=== PATIENT | female | born 1935 | race Caucasian/White ===

== ENCOUNTER 2016-09-09 14:34 | Emergency (ER) | payer OTHER ==
[~2016-09-09] VITALS: Ht 162.6 cm; Wt 64.5 kg
[~2016-09-09 14:34] MED LIST: ACID REDUCER150 MG PO; ADVAIR 250/501 DISK IH; ALBUTEROL17 G1 IH; ALPRAZOLAM0.25 M2 PO; AMBIEN10 M1 PO; AMBIEN10 MG PO; AMITIZA24 MICROGR PO; AMMONIUM LACTA224 GM TP; ANALGESIC325 M1 PO; ANAPROX DS550 M1 PO; ARICEPT10 MG PO; ARICEPT5 MG PO; ARTANE2 MG PO; ASPIRIN325 M1 PO; ATARAX,VISTARIL25 M1 PO; ATARAX,VISTARIL25 MG PO; Aricept PO; Artane PO; Augmentin PO; BACTRIM,SEPT1 TABLET PO; BENTYL20 MG PO; BUDEPRION SR150 MG PO; BUSPAR PO; BUSPAR15 MG PO; BUSPAR30 MG PO; BUSPAR5 MG PO; BUSPIRONE HCL30 MG PO; BUSPIRONE HCL5 MG PO; Bentyl PO; Buspar PO; CALCIUM WITH V1 EAC2 PO; CALCIUM500 M3 PO; CEFTIN500 MG PO; CELEBREX200 MG PO; CEPHALEXIN500 MG PO; CHANTIX0.5 MG PO; CHANTIX1 MG PO; CHLORZOXAZONE500 MG PO; CIPRO250 MG PO; CIPRO500 MG PO; CITALOPRAM HBR10 M1 PO; CITALOPRAM HBR10 MG PO; COMPAZINE10 MG PO; CORTIZONE-10 PL57 GM TP; CYCLOBENZAPRINE10 MG PO; CYMBALTA30 MG PO; Ceftin PO; DAZIDOX10 MG PO; DESYREL100 MG PO; DIAZEPAM2 MG PO; DONEPEZIL HCL10 MG PO; DULOXETINE HCL30 MG PO; DULOXETINE HCL40 MG PO; DUONEB3 ML IH; EMS NITROSTAT0.4 MG PO; ENDOCET 5-3251 EACH PO; ESCITALOPRAM OX10 MG PO; FENTANYL1 EACH TD; FLAGYL500 MG PO; FLEXERIL10 MG PO; FLEXERIL5 MG PO; Flexeril PO; GABAPENTIN300 MG PO; HABITROL,NICODE21 MG TD; HABITROL,NICODER7 MG TD; HEARTBURN150 MG PO; HYDROCODON-ACE1 EAC7 PO; HYDROCODON-ACE1 EAC8 PO; HYDROCODONE-AP1 EAC8 PO; HYDROXYZINE HCL50 MG PO; IMODIUM2 MG PO; INDERAL20 MG PO; INDERAL40 MG PO; ISORDIL,SORBITRA5 MG PO; KADIAN30 MG PO; KEFLEX500 MG PO; KEPPRA XR500 MG PO; KEPPRA1000 MG PO; KEPPRA500 MG PO; KEPPRA750 MG PO; Kadian PO; Kenalog 0.1% Cream TP; Keppra PO; LAXATIVE25 MG PO; LEVETIRACETAM500 MG PO; LEVETIRACETAM750 MG PO; LEVO-T150 MCG PO; LEVOTHROID,SY0.15 MG PO; LEVOTHROID125 MCG PO; LEVOTHYROXINE75 MCG PO; LEXAPRO10 MG PO; LOPRESSOR25 MG PO; LUNESTA3 MG PO; Levaquin PO; Levothroid,Synthroid PO; Lopressor PO; MAALOX ADVANCE355 ML PO; METHADONE5 MG PO; METOPROLOL SUCC25 MG PO; METOPROLOL TART25 MG PO; MIRALAX17 GM PO; MORPHINE SULFAT15 MG PO; MORPHINE SULFAT30 M1 PO; MYSOLINE50 MG PO; Methadone HCl PO; Mysoline PO; NAPROSYN500 MG PO; NEBULIZER; NEURONTIN PO; NEURONTIN300 MG PO; NITROSTAT,NITR0.4 M1 SL; OLEPTRO ER150 MG PO; OMEPRAZOLE20 M1 PO; OMEPRAZOLE20 M2 PO; OMEPRAZOLE20 MG PO; OMEPRAZOLE40 M1 PO; ONDANSETRON HCL4 MG PO; OXYCODONE HCL10 MG PO; OXYCODONE HCL5 M1 PO; OXYCONTIN20 MG PO; OXYCONTIN40 MG PO; OxyCONTIN PO; PANTOPRAZOLE SO40 MG PO; PERCOCET 5/31 TABLET PO; PERIACTIN PO; PREDNISONE10 MG PO; PREDNISONE20 MG PO; PREDNISONE50 MG PO; PRILOSEC20 MG PO; PRIMIDONE50 MG PO; PRINIVIL5 MG PO; PROCHLORPERAZIN10 MG PO; PROMETHAZINE HC25 M1 PO; PROTONIX40 MG PO; PROVENTIL HFA6.7 GM IH; PROVENTIL,2.5 MG/0.5 IH; Pepcid PO; PriLOSEC PO; Protonix PO; Proventil,Ventolin H IH; QUETIAPINE FUMA25 MG PO; RANITIDINE HCL150 M1 PO; REMERON15 M2 PO; RESTORIL15 MG PO; RISPERDAL1 MG PO; RYZOLT200 MG; SENNA LAX8.6 MG PO; SENNA PLUS TAB1 EACH PO; SENNA-S TABLET1 EACH PO; SEPTRA DS TABL1 EACH PO; SEROQUEL12.5 MG PO; SIMVASTATIN20 M1 G-TUBE; SIMVASTATIN20 M1 PO; SIMVASTATIN20 MG; SPIRIVA1 INHALATI IH; SYNTHROID88 MCG PO; Senokot,Sennagen PO; Skelaxin PO; TEMAZEPAM15 M1 PO; THEO-24200 MG PO; THEO-DUR,THEOC200 MG PO; TIROSINT75 MCG PO; TOBREX5 ML BOTH EYES; TRAMADOL HCL50 MG PO; TRAZODONE HCL100 MG PO; TRAZODONE HCL50 MG PO; TRIAMCINOLONE A15 G2 TP; TRIHEXYPHENIDYL2 MG PO; Theo-Dur,Theocron PO; Toprol XL PO; Tylenol Regular Stre PO; VALIUM2 MG PO; VALPROIC A250 MG/5 M PO; VICODIN,LORT1 TABLET PO; Vibramycin, Doryx PO; Vicodin,Lortab 5/500 PO; Vicodin,Norco 5/325 PO; WARFARIN SODIUM5 MG PO; Wellbutrin SR PO; XANAX0.125 MG PO; XANAX0.25 MG PO; XANAX0.5 MG PO; XARELTO20 MG PO; Xanax PO; ZANTAC150 MG PO; ZESTRIL,PRINIVIL5 MG PO; ZITHROMAX Z-PA250 MG PO; ZITHROMAX250 MG PO; ZOCOR20 MG PO; ZOFRAN ODT4 MG PO; ZOFRAN4 MG PO; ZOLPIDEM TARTRA10 MG PO; ZOLPIDEM TARTRAT5 MG PO; ZUPLENZ4 MG PO; Zestril,Prinivil PO; Zithromax PO; Zocor PO; [UNRECOGNIZED DRUG - OTHER] TP; celeXA PO; oxyCODONE PO; predniSONE PO; risperDAL PO
[2016-09-09 15:36] LABS: HEMATOCRIT 44.3 % (36.0-46.0); MCHC 32.5 G/DL (30.0-36.0); MCV 86.2 FL (83-99); MEAN PLAT.VOLUME 9.6 uM^3 (9.5-12.4); PLATELET COUNT 148 K/uL (156-360); RBC DIS.WIDTH-CV 14.9 % (11.8-14.6); RBC DIS.WIDTH-SD 46.9 % (39-53); RED BLOOD COUNT 5.14 M/uL (3.80-5.20)
[2016-09-09 15:57] LABS: CHLORIDE 105 mEq/L (99-109); POTASSIUM 4.3 mEq/L (3.7-5.4); SODIUM 140 mEq/L (136-147)
[2016-09-09 16:00] LABS: GLUCOSE 116 mg/dL (70-99)
[2016-09-09 16:01] LABS: ANION GAP 11 MEQ/L (2-14)
[2016-09-09 16:02] LABS: TOTAL BILIRUBIN 0.8 mg/dL (0.0-1.0)
[2016-09-09 16:03] LABS: ALKALINE PHOSPHATASE 92 IU/L (3-129); GFR ESTIMATE (CALCULATED) > 59 mL/min/
[2016-09-09 16:05] LABS: UREA NITROGEN (BUN) 20 mg/dL (9-23)
[2016-09-09] MEDS ORDERED: ZOFRAN4 MG PO (18:24)
[2016-09-09 18:30] VITALS: BP 138/77
[2016-09-09 18:55] LABS: ADD MIUA? YES; BILIRUBIN NEGATIVE; BLOOD NEGATIVE; COLOR YELLOW ((YELLOW)); GLUCOSE (STRIP) NEGATIVE; KETONES NEGATIVE; LEUKOCYTES SMALL; NITRITE NEGATIVE; PH, URINE 5.5 (5-8); PROTEIN (STRIP) NEGATIVE; SPECIFIC GRAVITY 1.024 (1.000-1.030); UROBILINOGEN 0.2 MG/DL (0.2-1.0)
[2016-09-09 19:04] LABS: BACTERIA NONE SEEN; CASTS NONE SEEN /LPF; CRYSTALS NONE SEEN; EPITHELIAL CELLS RARE; MUCUS NONE SEEN; PATHOLOGICAL CAST NONE SEEN; RED BLOOD CELLS 0-5 /HPF (0-5); SMALL ROUND CELL NONE SEEN; UCUL ADDED? NO; YEAST-LIKE CELL NONE SEEN
== END 2016-09-09 18:32 | disposition home or self-care (01) ==
LOC: EME 14:34
PROVIDERS: Emergency Medicine
DX: R11.10 Vomiting, unspecified (principal); R05 Cough; J44.9 Chronic obstructive pulmonary disease, unspecified; G89.29 Other chronic pain; E78.5 Hyperlipidemia, unspecified; K21.9 Gastro-esophageal reflux disease without esophagitis; R56.9 Unspecified convulsions; E11.9 Type 2 diabetes mellitus without complications; Z85.118 Personal history of other malignant neoplasm of bronchus and lung; Z95.0 Presence of cardiac pacemaker; Z87.891 Personal history of nicotine dependence
CPT/HCPCS: 80053; 81003; 85027; 99281; 99284

== ENCOUNTER 2016-11-14 00:30 | Emergency (ER) | payer OTHER ==
[~2016-11-14] VITALS: Ht 162.6 cm; Wt 62.9 kg
[2016-11-14 00:57] LABS: HEMATOCRIT 41.7 % (36.0-46.0); MCH 27.9 PG (29.0-34.0); MCHC 30.9 G/DL (30.0-36.0); MCV 90.1 FL (83-99); MEAN PLAT.VOLUME 9.4 uM^3 (9.5-12.4); PLATELET COUNT 136 K/uL (156-360); RBC DIS.WIDTH-CV 14.3 % (11.8-14.6); RBC DIS.WIDTH-SD 47.2 % (39-53); RED BLOOD COUNT 4.63 M/uL (3.80-5.20); WHITE BLOOD COUNT 6.3 K/uL (4.1-10.2)
[2016-11-14 01:08] LABS: CHLORIDE 108 mEq/L (99-109); POTASSIUM 3.9 mEq/L (3.7-5.4); SODIUM 141 mEq/L (136-147)
[2016-11-14 01:10] LABS: GLUCOSE 164 mg/dL (70-99)
[2016-11-14 01:11] LABS: ANION GAP 9 MEQ/L (2-14)
[2016-11-14 01:14] LABS: GFR ESTIMATE (CALCULATED) 57 mL/min/
[2016-11-14 01:15] LABS: UREA NITROGEN (BUN) 21 mg/dL (9-23)
[2016-11-14 01:19] LABS: TROP-I INTERPRETATION NEGATIVE; TROPONIN-I < 0.01 ng/mL (0.0-0.30)
[2016-11-14 02:39] VITALS: BP 110/62
== END 2016-11-14 02:41 | disposition left against medical advice (07) ==
LOC: EME → EDBD 00:30 → EME 02:41
DX: R07.89 Other chest pain (principal); J45.909 Unspecified asthma, uncomplicated; Z87.891 Personal history of nicotine dependence; I25.10 Atherosclerotic heart disease of native coronary artery without angina pectoris; Z91.048 Other nonmedicinal substance allergy status; Z88.8 Allergy status to other drugs, medicaments and biological substances; Z85.118 Personal history of other malignant neoplasm of bronchus and lung; F03.90 Unspecified dementia, unspecified severity, without behavioral disturbance, psychotic disturbance, mood disturbance, and anxiety; G40.909 Epilepsy, unspecified, not intractable, without status epilepticus; E11.9 Type 2 diabetes mellitus without complications; Z90.13 Acquired absence of bilateral breasts and nipples; Z95.0 Presence of cardiac pacemaker
CPT/HCPCS: 71020; 80048; 84484; 85027; 93005; 94640 76; 99281; 99284

== ENCOUNTER 2016-11-24 17:46 | Emergency (ER) | payer OTHER ==
[~2016-11-24] VITALS: Ht 162.6 cm; Wt 60.2 kg
[2016-11-24 19:12] LABS: EOSINOPHIL (%) 1.2 % (0-5); EOSINOPHIL COUNT 0.1 K/uL (0-0.3); HEMATOCRIT 42.6 % (36.0-46.0); IMMATURE GRANULOCYTE (%) 0.3 % (0.0-0.7); INSTRUMENT ABS NEUTROPHIL CT 5.8 K/uL; LYMPHOCYTE COUNT 1.1 K/uL (1.0-2.8); MCH 28.2 PG (29.0-34.0); MCHC 31.7 G/DL (30.0-36.0); MCV 89.1 FL (83-99); MEAN PLAT.VOLUME 9.5 uM^3 (9.5-12.4); MONOCYTE (%) 2.8 % (3-12); MONOCYTE COUNT 0.2 K/uL (0-0.8); NEUTROPHIL (%) 80.4 % (45-76); NEUTROPHIL COUNT 5.8 K/uL (1.8-6.4); PLATELET COUNT 162 K/uL (156-360); RBC DIS.WIDTH-CV 13.7 % (11.8-14.6); RBC DIS.WIDTH-SD 45.1 % (39-53); RED BLOOD COUNT 4.78 M/uL (3.80-5.20); WHITE BLOOD COUNT 7.2 K/uL (4.1-10.2)
[2016-11-24 19:34] LABS: CHLORIDE 105 mEq/L (99-109); SODIUM 139 mEq/L (136-147)
[2016-11-24 19:37] LABS: GLUCOSE 156 mg/dL (70-99)
[2016-11-24 19:38] LABS: ANION GAP 12 MEQ/L (2-14)
[2016-11-24 19:39] LABS: TOTAL BILIRUBIN 0.4 mg/dL (0.0-1.0)
[2016-11-24 19:40] LABS: ALKALINE PHOSPHATASE 67 IU/L (3-129)
[2016-11-24 19:41] LABS: GFR ESTIMATE (CALCULATED) > 59 mL/min/
[2016-11-24 19:42] LABS: UREA NITROGEN (BUN) 15 mg/dL (9-23)
[2016-11-24 19:46] LABS: TROP-I INTERPRETATION NEGATIVE; TROPONIN-I < 0.01 ng/mL (0.0-0.30)
[2016-11-24 22:20] LABS: TROP-I INTERPRETATION NEGATIVE; TROPONIN-I < 0.01 ng/mL (0.0-0.30)
[2016-11-25] MEDS ORDERED: PREDNISONE50 MG PO (00:39)
[2016-11-25 00:58] VITALS: BP 132/64
[2016-11-26] MEDS ORDERED: LEVOTHYROXINE150 MCG PO (07:34)
[2016-11-26] MEDS ORDERED: PREDNISONE50 MG PO (11:36)
[2016-11-26] MEDS ORDERED: KADIAN30 MG PO (11:37)
[2016-11-26] MEDS ORDERED: LEVO-T150 MCG PO (11:37)
[2016-11-26] MEDS ORDERED: SEROQUEL12.5 MG PO (11:37)
[2016-11-26] MEDS ORDERED: KEPPRA750 MG PO (11:38)
[2016-11-26] MEDS ORDERED: OXYCODONE HCL10 MG PO (11:38)
[2016-11-26] MEDS ORDERED: ZANTAC300 MG PO (11:39)
[2016-11-26] MEDS ORDERED: INDERAL20 MG PO (11:39)
[2016-11-26] MEDS ORDERED: MORPHINE SULFAT30 M2 PO (12:29)
== END 2016-11-25 00:58 | disposition home or self-care (01) ==
LOC: EME 17:46
PROVIDERS: Emergency Medicine
DX: J44.1 Chronic obstructive pulmonary disease with (acute) exacerbation (principal); Z85.118 Personal history of other malignant neoplasm of bronchus and lung; Z86.711 Personal history of pulmonary embolism; Z86.718 Personal history of other venous thrombosis and embolism; Z87.891 Personal history of nicotine dependence; Z99.81 Dependence on supplemental oxygen
CPT/HCPCS: 71020; 71275; 80053; 83880; 84484; 85025; 93005; 99281; 99284; J1100; J7040; J7644

== ENCOUNTER 2016-11-26 06:44 | Observation (INO) | payer OTHER ==
[~2016-11-26] VITALS: Ht 162.6 cm; Wt 62.5 kg
[2016-11-26] MEDS ORDERED: LEVOTHYROXINE150 MCG PO (07:34)
[2016-11-26 07:39] LABS: EOSINOPHIL (%) 0 % (0-5); HEMATOCRIT 43.7 % (36.0-46.0); IMMATURE GRANULOCYTE (%) 0.4 % (0.0-0.7); INSTRUMENT ABS NEUTROPHIL CT 8.7 K/uL; MCH 27.8 PG (29.0-34.0); MCHC 31.1 G/DL (30.0-36.0); MCV 89.2 FL (83-99); MONOCYTE (%) 1.3 % (3-12); MONOCYTE COUNT 0.1 K/uL (0-0.8); NEUTROPHIL (%) 88.2 % (45-76); NEUTROPHIL COUNT 8.7 K/uL (1.8-6.4); PLATELET COUNT 169 K/uL (156-360); RBC DIS.WIDTH-CV 14.2 % (11.8-14.6)
[2016-11-26 07:41] LABS: WHITE BLOOD COUNT 9.9 K/uL (4.1-10.2)
[2016-11-26 07:59] LABS: ANION GAP 7 MEQ/L (2-14); CHLORIDE 108 MEQ/L (99-109); GFR ESTIMATE (CALCULATED) > 59 mL/min/; GLUCOSE 195 mg/dL (70-99); POTASSIUM 4.4 MEQ/L (3.7-5.4); SAMPLE HEMOLYSIS CHECK 0; SAMPLE ICTERIC CHECK 0; SAMPLE LIPEMIA CHECK 0; SODIUM 140 MEQ/L (136-147)
[2016-11-26 08:00] LABS: UREA NITROGEN (BUN) 24 mg/dL (9-23)
[2016-11-26 08:03] LABS: TROP-I INTERPRETATION NEGATIVE; TROPONIN-I < 0.01 ng/mL (0.0-0.30)
[2016-11-26] MEDS ORDERED: PREDNISONE50 MG PO (11:36)
[2016-11-26] MEDS ORDERED: KADIAN30 MG PO (11:37)
[2016-11-26] MEDS ORDERED: SEROQUEL12.5 MG PO (11:37)
[2016-11-26] MEDS ORDERED: LEVO-T150 MCG PO (11:37)
[2016-11-26] MEDS ORDERED: OXYCODONE HCL10 MG PO (11:38)
[2016-11-26] MEDS ORDERED: KEPPRA750 MG PO (11:38)
[2016-11-26] MEDS ORDERED: INDERAL20 MG PO (11:39)
[2016-11-26] MEDS ORDERED: ZANTAC300 MG PO (11:39)
[2016-11-26] MEDS ORDERED: MORPHINE SULFAT30 M2 PO (12:29)
[2016-11-26 14:45] VITALS: BP 170/77
[2016-11-26 15:26] LABS: TROP-I INTERPRETATION NEGATIVE; TROPONIN-I < 0.01 ng/mL (0.0-0.30)
[2016-11-26 17:06] VITALS: BP 131/60
[2016-11-26 19:46] VITALS: BP 134/63
[2016-11-26 20:22] LABS: TROP-I INTERPRETATION NEGATIVE; TROPONIN-I < 0.01 ng/mL (0.0-0.30)
[2016-11-27 00:30] VITALS: BP 130/60
[2016-11-27 01:43] LABS: INFLUENZA A VIRAL ANTIGEN NEGATIVE; INFLUENZA B VIRAL ANTIGEN NEGATIVE
[2016-11-27 05:00] VITALS: BP 125/73
[2016-11-27] MEDS ORDERED: PROVENTIL HFA6.7 GM IH (07:47)
[2016-11-27] MEDS ORDERED: SPIRIVA1 INHALATI IH (07:47)
[2016-11-27] MEDS ORDERED: PREDNISONE10 MG PO (07:47)
[2016-11-27] MEDS ORDERED: DUONEB 2.5-0.5 M3 ML AEROSOL (07:47)
[2016-11-27] MEDS ORDERED: LEVAQUIN500 MG PO (07:47)
[2016-11-27] MEDS ORDERED: ADVAIR 100/501 DISK IH (07:47)
[2016-11-27 07:49] VITALS: BP 141/61
[2016-11-27 08:30] VITALS: BP 149/70
[2016-11-27] MEDS ORDERED: LEVAQUIN250 MG PO (08:41)
== END 2016-11-27 11:19 | disposition home or self-care (01) ==
LOC: EME → EDBD 06:44 → EME 06:44 → EDOF 11:37 → 5WEST 11:37 → EDOF 11:42 → 5WEST 14:25
PROVIDERS: Emergency Medicine; Internal Medicine
DX: J44.1 Chronic obstructive pulmonary disease with (acute) exacerbation (principal); E11.9 Type 2 diabetes mellitus without complications; I10 Essential (primary) hypertension; G40.909 Epilepsy, unspecified, not intractable, without status epilepticus; Z86.711 Personal history of pulmonary embolism; Z86.718 Personal history of other venous thrombosis and embolism; Z85.118 Personal history of other malignant neoplasm of bronchus and lung; Z87.891 Personal history of nicotine dependence; Z95.0 Presence of cardiac pacemaker
CPT/HCPCS: 71010; 78582; 80048; 83880; 84484; 85025; 87070; 87205; 87502; 93005; 94640; 94640 76; 94667; 99202; 99281; 99285; A9540; A9567; G0378; J1100; J1650; J2270; J2930; J7030; J7644

== ENCOUNTER 2017-01-28 22:48 | Emergency (ER) | payer OTHER ==
[~2017-01-28] VITALS: Ht 165.1 cm; Wt 58.1 kg
[~2017-01-28 22:48] MED LIST changes: +ADVAIR 100/501 DISK IH; +DUONEB 2.5-0.5 M3 ML AEROSOL; +LEVAQUIN250 MG PO; +LEVAQUIN500 MG PO; +LEVOTHYROXINE150 MCG PO; +MORPHINE SULFAT30 M2 PO; +ZANTAC300 MG PO
[2017-01-28 23:42] LABS: HEMATOCRIT 45.6 % (36.0-46.0); MCH 27.4 PG (29.0-34.0); MCHC 31.1 G/DL (30.0-36.0); MCV 87.9 FL (83-99); MEAN PLAT.VOLUME 10.7 uM^3 (9.5-12.4); PLATELET COUNT 138 K/uL (156-360); RBC DIS.WIDTH-CV 13.4 % (11.8-14.6); RBC DIS.WIDTH-SD 43.4 % (39-53); RED BLOOD COUNT 5.19 M/uL (3.80-5.20); WHITE BLOOD COUNT 5.9 K/uL (4.1-10.2)
[2017-01-28 23:57] LABS: CHLORIDE 109 mEq/L (99-109); POTASSIUM 4.2 mEq/L (3.7-5.4); SODIUM 142 mEq/L (136-147)
[2017-01-28 23:59] LABS: GLUCOSE 121 mg/dL (70-99)
[2017-01-29] LABS: ANION GAP 12 MEQ/L (2-14)
[2017-01-29 00:02] LABS: SERUM ETHYL ALCOHOL < 10 mg/dL
[2017-01-29 00:03] LABS: GFR ESTIMATE (CALCULATED) > 59 mL/min/
[2017-01-29 00:04] LABS: UREA NITROGEN (BUN) 29 mg/dL (9-23)
[2017-01-29 00:05] LABS: CREATINE KINASE 30 IU/L (1-294); TOTAL CK 30 IU/L (1-294)
[2017-01-29 00:12] LABS: TROP-I INTERPRETATION NEGATIVE; TROPONIN-I < 0.01 ng/mL (0.0-0.30)
[2017-01-29 01:27] LABS: ADD MIUA? YES; BILIRUBIN NEGATIVE; BLOOD NEGATIVE; COLOR YELLOW ((YELLOW)); GLUCOSE (STRIP) NEGATIVE; KETONES NEGATIVE; LEUKOCYTES LARGE; NITRITE NEGATIVE; PROTEIN (STRIP) NEGATIVE; SPECIFIC GRAVITY 1.023 (1.000-1.030); UROBILINOGEN 0.2 MG/DL (0.2-1.0)
[2017-01-29 01:31] LABS: BACTERIA RARE /HPF; EPITHELIAL CELLS 1+ /HPF; HYALINE CASTS 0-5 /LPF; MUCUS TRACE /LPF; RED BLOOD CELLS 0-5 /HPF (0-5); UCUL ADDED? NO
[2017-01-29 01:36] LABS: COCAINE NEGATIVE (150 ng/mL); METHAMPHETAMINE NEGATIVE (500 ng/mL); OPIATES (MORPHINE) PRESUMPTIVE POSITIVE (100 ng/mL); PHENCYCLIDINE NEGATIVE (25 ng/mL); THC CANNABINOIDS NEGATIVE (50 ng/mL)
[2017-01-29 01:37] LABS: ADD MEDTOX COMMENT Y; AMPHETAMINE NEGATIVE (500 ng/mL); BARBITURATES NEGATIVE (200 ng/mL); BENZODIAZEPINES NEGATIVE (150 ng/mL); INTERNAL CONTROLS VALID? YES; METHADONE NEGATIVE (200 ng/mL); OXYCODONE PRESUMPTIVE POSITIVE (100 ng/mL); PROPOXYPHENE NEGATIVE (300 ng/mL); TRICYCLIC ANTIDEPRESSANTS PRESUMPTIVE POSITIVE (300 ng/mL)
[2017-01-29 01:58] VITALS: BP 127/99
== END 2017-01-29 02:00 | disposition home or self-care (01) ==
LOC: EME → EDBD 22:48 → EME 01-29 02:00
PROVIDERS: Emergency Medicine
DX: G89.29 Other chronic pain (principal); M54.5 Low back pain; F11.20 Opioid dependence, uncomplicated; E11.9 Type 2 diabetes mellitus without complications; E78.5 Hyperlipidemia, unspecified; G40.909 Epilepsy, unspecified, not intractable, without status epilepticus; K21.9 Gastro-esophageal reflux disease without esophagitis; Z90.10 Acquired absence of unspecified breast and nipple; Z87.891 Personal history of nicotine dependence
CPT/HCPCS: 80048; 81003; 82550; 82553; 84484; 84999; 85027; 87086; 93005; G0480; J3010

== ENCOUNTER 2017-02-10 09:01 | Emergency (ER) | payer OTHER ==
[~2017-02-10] VITALS: Ht 162.6 cm; Wt 60.1 kg
[2017-02-10 10:00] LABS: EOSINOPHIL (%) 2.1 % (0-5); EOSINOPHIL COUNT 0.1 K/uL (0-0.3); HEMATOCRIT 46.5 % (36.0-46.0); IMMATURE GRANULOCYTE (%) 0.3 % (0.0-0.7); INSTRUMENT ABS NEUTROPHIL CT 4.3 K/uL; LYMPHOCYTE COUNT 1.4 K/uL (1.0-2.8); MCH 27.9 PG (29.0-34.0); MCHC 31.8 G/DL (30.0-36.0); MCV 87.7 FL (83-99); MONOCYTE (%) 4.1 % (3-12); MONOCYTE COUNT 0.3 K/uL (0-0.8); NEUTROPHIL (%) 70.4 % (45-76); NEUTROPHIL COUNT 4.3 K/uL (1.8-6.4); PLATELET COUNT 149 K/uL (156-360); RBC DIS.WIDTH-CV 13.5 % (11.8-14.6); RBC DIS.WIDTH-SD 43.6 % (39-53); WHITE BLOOD COUNT 6.1 K/uL (4.1-10.2)
[2017-02-10 10:11] LABS: CHLORIDE 106 mEq/L (99-109); POTASSIUM 4.1 mEq/L (3.7-5.4); SODIUM 137 mEq/L (136-147)
[2017-02-10 10:13] LABS: GLUCOSE 126 mg/dL (70-99)
[2017-02-10 10:15] LABS: ANION GAP 11 MEQ/L (2-14); TOTAL BILIRUBIN 0.7 mg/dL (0.0-1.0)
[2017-02-10 10:17] LABS: ALKALINE PHOSPHATASE 76 IU/L (3-129); GFR ESTIMATE (CALCULATED) > 59 mL/min/
[2017-02-10 10:18] LABS: UREA NITROGEN (BUN) 13 mg/dL (9-23)
[2017-02-10 10:20] LABS: LIPASE 8 U/L (1.0-51.0)
[2017-02-10 13:50] LABS: ADD MIUA? YES; BILIRUBIN NEGATIVE; BLOOD NEGATIVE; COLOR YELLOW ((YELLOW)); GLUCOSE (STRIP) NEGATIVE; KETONES 5; LEUKOCYTES TRACE; NITRITE NEGATIVE; PROTEIN (STRIP) NEGATIVE; SPECIFIC GRAVITY 1.017 (1.000-1.030); UROBILINOGEN 0.2 MG/DL (0.2-1.0)
[2017-02-10 14:35] LABS: BACTERIA RARE /HPF; EPITHELIAL CELLS 1+ /HPF; MUCUS TRACE /LPF; RED BLOOD CELLS 0-5 /HPF (0-5); WHITE BLOOD CELLS 0-5 /HPF (0-5)
[2017-02-10] MEDS ORDERED: ZOFRAN ODT4 MG PO (16:26)
[2017-02-10] MEDS ORDERED: CITRATE OF MAG296 ML PO (16:26)
[2017-02-10 16:48] VITALS: BP 122/71
== END 2017-02-10 16:50 | disposition home or self-care (01) ==
LOC: EME 09:01
PROVIDERS: Emergency Medicine
DX: R11.2 Nausea with vomiting, unspecified (principal); R10.9 Unspecified abdominal pain; K59.00 Constipation, unspecified; J44.9 Chronic obstructive pulmonary disease, unspecified; R06.2 Wheezing; E03.9 Hypothyroidism, unspecified; Z85.118 Personal history of other malignant neoplasm of bronchus and lung; Z86.711 Personal history of pulmonary embolism; Z86.718 Personal history of other venous thrombosis and embolism; Z95.811 Presence of heart assist device; Z90.49 Acquired absence of other specified parts of digestive tract; Z90.13 Acquired absence of bilateral breasts and nipples; Z90.710 Acquired absence of both cervix and uterus; Z87.891 Personal history of nicotine dependence
CPT/HCPCS: 71010; 74176; 80053; 81003; 83690; 85025; 94640; 99281; 99284

== ENCOUNTER 2017-02-28 17:05 | Emergency (ER) | payer OTHER ==
[~2017-02-28] VITALS: Ht 162.6 cm; Wt 66.1 kg
[~2017-02-28 17:05] MED LIST changes: +CITRATE OF MAG296 ML PO
[2017-02-28 21:50] LABS: CHLORIDE 104 mEq/L (99-109); POTASSIUM 4.5 mEq/L (3.7-5.4); SODIUM 140 mEq/L (136-147)
[2017-02-28 21:52] LABS: GLUCOSE 136 mg/dL (70-99)
[2017-02-28 21:53] LABS: ANION GAP 15 MEQ/L (2-14)
[2017-02-28 21:56] LABS: GFR ESTIMATE (CALCULATED) > 59 mL/min/
[2017-02-28 21:57] LABS: UREA NITROGEN (BUN) 20 mg/dL (9-23)
[2017-02-28 22:05] LABS: TROP-I INTERPRETATION NEGATIVE; TROPONIN-I < 0.01 ng/mL (0.0-0.30)
[2017-02-28] MEDS ORDERED: ZITHROMAX Z-PA250 MG PO (22:09)
[2017-02-28] MEDS ORDERED: PREDNISONE20 MG PO (22:09)
[2017-02-28 22:31] VITALS: BP 162/93
== END 2017-02-28 22:34 | disposition home or self-care (01) ==
LOC: EME 17:05
PROVIDERS: Emergency Medicine
DX: J44.1 Chronic obstructive pulmonary disease with (acute) exacerbation (principal); E78.5 Hyperlipidemia, unspecified; G40.909 Epilepsy, unspecified, not intractable, without status epilepticus; K21.9 Gastro-esophageal reflux disease without esophagitis; Z87.891 Personal history of nicotine dependence
CPT/HCPCS: 71020; 80048; 82803; 83605; 83880; 84484; 85027; 87040; 93005; 94640; 99281; 99284; J7512

== ENCOUNTER 2017-04-19 07:46 | Emergency (ER) | payer OTHER ==
[~2017-04-19] VITALS: Ht 162.6 cm; Wt 54.1 kg
[2017-04-19] MEDS ORDERED: CYMBALTA60 MG PO (08:15)
[2017-04-19 08:24] LABS: EOSINOPHIL (%) 3.6 % (0-5); EOSINOPHIL COUNT 0.2 K/uL (0-0.3); HEMATOCRIT 39.4 % (36.0-46.0); IMMATURE GRANULOCYTE (%) 0.2 % (0.0-0.7); INSTRUMENT ABS NEUTROPHIL CT 4.1 K/uL; LYMPHOCYTE COUNT 1.4 K/uL (1.0-2.8); MCHC 31.2 G/DL (30.0-36.0); MCV 89.7 FL (83-99); MONOCYTE (%) 6.3 % (3-12); MONOCYTE COUNT 0.4 K/uL (0-0.8); NEUTROPHIL (%) 67.1 % (45-76); NEUTROPHIL COUNT 4.1 K/uL (1.8-6.4); PLATELET COUNT 135 K/uL (156-360); RBC DIS.WIDTH-CV 14.6 % (11.8-14.6); RBC DIS.WIDTH-SD 48.9 % (39-53); RED BLOOD COUNT 4.39 M/uL (3.80-5.20); WHITE BLOOD COUNT 6.2 K/uL (4.1-10.2)
[2017-04-19 08:31] LABS: CHLORIDE 106 mEq/L (99-109); POTASSIUM 4.3 mEq/L (3.7-5.4); SODIUM 141 mEq/L (136-147)
[2017-04-19 08:33] LABS: GLUCOSE 110 mg/dL (70-99)
[2017-04-19 08:35] LABS: ANION GAP 10 MEQ/L (2-14); TOTAL BILIRUBIN 0.4 mg/dL (0.0-1.0)
[2017-04-19 08:37] LABS: ALKALINE PHOSPHATASE 81 IU/L (3-129); GFR ESTIMATE (CALCULATED) > 59 mL/min/
[2017-04-19 08:38] LABS: UREA NITROGEN (BUN) 24 mg/dL (9-23)
[2017-04-19 08:56] LABS: ADD MIUA? YES; BILIRUBIN NEGATIVE; BLOOD NEGATIVE; COLOR YELLOW ((YELLOW)); GLUCOSE (STRIP) NEGATIVE; KETONES NEGATIVE; LEUKOCYTES SMALL; NITRITE NEGATIVE; PROTEIN (STRIP) NEGATIVE; SPECIFIC GRAVITY 1.015 (1.000-1.030); UROBILINOGEN 0.2 MG/DL (0.2-1.0)
[2017-04-19 09:01] LABS: BACTERIA RARE /HPF; EPITHELIAL CELLS 1+ /HPF; MUCUS NONE SEEN /LPF; RED BLOOD CELLS 0-5 /HPF (0-5); UCUL ADDED? NO; WHITE BLOOD CELLS 0-5 /HPF (0-5)
[2017-04-19] MEDS ORDERED: XANAX0.25 MG PO (10:35)
[2017-04-19 11:23] VITALS: BP 115/91
== END 2017-04-19 11:24 | disposition home or self-care (01) ==
LOC: EME 07:46
PROVIDERS: Emergency Medicine
DX: F41.9 Anxiety disorder, unspecified (principal); J44.9 Chronic obstructive pulmonary disease, unspecified; R25.8 Other abnormal involuntary movements; T48.6X5A Adverse effect of antiasthmatics, initial encounter; Z85.118 Personal history of other malignant neoplasm of bronchus and lung; Z86.718 Personal history of other venous thrombosis and embolism; Z95.0 Presence of cardiac pacemaker; K21.9 Gastro-esophageal reflux disease without esophagitis; F03.90 Unspecified dementia, unspecified severity, without behavioral disturbance, psychotic disturbance, mood disturbance, and anxiety; E78.5 Hyperlipidemia, unspecified; E11.9 Type 2 diabetes mellitus without complications; F17.200 Nicotine dependence, unspecified, uncomplicated
CPT/HCPCS: 71010; 80053; 81003; 85025; 99281; 99284

== ENCOUNTER 2017-06-10 02:07 | Emergency (ER) | payer OTHER ==
[~2017-06-10] VITALS: Ht 162.6 cm; Wt 54.0 kg
[~2017-06-10 02:07] MED LIST changes: +CYMBALTA60 MG PO
[2017-06-10 03:41] LABS: EOSINOPHIL (%) 3.4 % (0-5); EOSINOPHIL COUNT 0.2 K/uL (0-0.3); HEMATOCRIT 37.7 % (36.0-46.0); IMMATURE GRANULOCYTE (%) 0.3 % (0.0-0.7); INSTRUMENT ABS NEUTROPHIL CT 4.3 K/uL; LYMPHOCYTE COUNT 1.3 K/uL (1.0-2.8); MCH 28.6 PG (29.0-34.0); MCHC 31.6 G/DL (30.0-36.0); MCV 90.6 FL (83-99); MEAN PLAT.VOLUME 9.6 uM^3 (9.5-12.4); MONOCYTE COUNT 0.3 K/uL (0-0.8); NEUTROPHIL (%) 69.8 % (45-76); NEUTROPHIL COUNT 4.3 K/uL (1.8-6.4); PLATELET COUNT 143 K/uL (156-360); RBC DIS.WIDTH-CV 15.1 % (11.8-14.6); RBC DIS.WIDTH-SD 49.8 % (39-53); RED BLOOD COUNT 4.16 M/uL (3.80-5.20); WHITE BLOOD COUNT 6.1 K/uL (4.1-10.2)
[2017-06-10 03:54] LABS: CHLORIDE 110 mEq/L (99-109); POTASSIUM 4.3 mEq/L (3.7-5.4); SODIUM 139 mEq/L (136-147)
[2017-06-10 03:55] LABS: MAGNESIUM 1.9 mg/dL (1.3-2.7)
[2017-06-10 03:56] LABS: GLUCOSE 105 mg/dL (70-99)
[2017-06-10 03:57] LABS: ANION GAP 7 MEQ/L (2-14)
[2017-06-10 03:59] LABS: GFR ESTIMATE (CALCULATED) > 59 mL/min/
[2017-06-10 04:00] LABS: UREA NITROGEN (BUN) 16 mg/dL (9-23)
[2017-06-10 04:02] LABS: CREATINE KINASE 57 IU/L (1-294)
[2017-06-10] MEDS ORDERED: KEPPRA750 MG PO (06:06)
[2017-06-10 06:26] VITALS: BP 129/60
== END 2017-06-10 06:29 | disposition home or self-care (01) ==
LOC: EME → EDBD 02:07 → EME 06:29
PROVIDERS: Emergency Medicine
DX: G40.909 Epilepsy, unspecified, not intractable, without status epilepticus (principal); E11.9 Type 2 diabetes mellitus without complications; J44.9 Chronic obstructive pulmonary disease, unspecified; E78.5 Hyperlipidemia, unspecified; F03.90 Unspecified dementia, unspecified severity, without behavioral disturbance, psychotic disturbance, mood disturbance, and anxiety; F32.9 Major depressive disorder, single episode, unspecified; K21.9 Gastro-esophageal reflux disease without esophagitis; F17.200 Nicotine dependence, unspecified, uncomplicated; F41.9 Anxiety disorder, unspecified; Z95.0 Presence of cardiac pacemaker; Z86.718 Personal history of other venous thrombosis and embolism; Z90.13 Acquired absence of bilateral breasts and nipples; Z85.118 Personal history of other malignant neoplasm of bronchus and lung
CPT/HCPCS: 70450; 80048; 82550; 83735; 85025; 93005; 99281; 99285; J2060; J2270; J7030

== ENCOUNTER 2017-08-04 23:24 | Emergency (ER) | payer OTHER ==
[~2017-08-04] VITALS: Ht 162.6 cm; Wt 56.8 kg
[2017-08-04 23:53] LABS: HEMATOCRIT 43.5 % (36.0-46.0); MCH 28.8 PG (29.0-34.0); MCHC 31.7 G/DL (30.0-36.0); MCV 90.8 FL (83-99); MEAN PLAT.VOLUME 9.7 uM^3 (9.5-12.4); PLATELET COUNT 200 K/uL (156-360); RBC DIS.WIDTH-CV 15.9 % (11.8-14.6); RBC DIS.WIDTH-SD 52.6 % (39-53); RED BLOOD COUNT 4.79 M/uL (3.80-5.20); WHITE BLOOD COUNT 6.1 K/uL (4.1-10.2)
[2017-08-05 00:02] LABS: CHLORIDE 104 mEq/L (99-109); POTASSIUM 4.2 mEq/L (3.7-5.4); SODIUM 143 mEq/L (136-147)
[2017-08-05 00:04] LABS: GLUCOSE 150 mg/dL (70-99)
[2017-08-05 00:05] LABS: ANION GAP 14 MEQ/L (2-14)
[2017-08-05 00:08] LABS: GFR ESTIMATE (CALCULATED) > 59 mL/min/
[2017-08-05 00:09] LABS: UREA NITROGEN (BUN) 15 mg/dL (9-23)
[2017-08-05 01:51] LABS: TROP-I INTERPRETATION NEGATIVE; TROPONIN-I < 0.01 ng/mL (0.0-0.30)
[2017-08-05] MEDS ORDERED: ALBUTEROL2.5 MG/3 M IH (04:53)
[2017-08-05] MEDS ORDERED: ZITHROMAX Z-PA250 MG PO (04:53)
[2017-08-05] MEDS ORDERED: ZOFRAN4 MG PO (04:53)
[2017-08-05] MEDS ORDERED: PREDNISONE20 MG PO (04:53)
[2017-08-05 05:09] VITALS: BP 121/67
== END 2017-08-05 05:10 | disposition home or self-care (01) ==
LOC: EME 23:24
DX: J44.1 Chronic obstructive pulmonary disease with (acute) exacerbation (principal); R11.2 Nausea with vomiting, unspecified; R19.7 Diarrhea, unspecified; G40.909 Epilepsy, unspecified, not intractable, without status epilepticus; F17.200 Nicotine dependence, unspecified, uncomplicated; E11.9 Type 2 diabetes mellitus without complications; E78.5 Hyperlipidemia, unspecified; Z85.118 Personal history of other malignant neoplasm of bronchus and lung; Z86.718 Personal history of other venous thrombosis and embolism; F32.9 Major depressive disorder, single episode, unspecified; K21.9 Gastro-esophageal reflux disease without esophagitis; F41.9 Anxiety disorder, unspecified; E05.90 Thyrotoxicosis, unspecified without thyrotoxic crisis or storm; Z95.0 Presence of cardiac pacemaker; Z90.13 Acquired absence of bilateral breasts and nipples; Z88.8 Allergy status to other drugs, medicaments and biological substances
CPT/HCPCS: 71020; 80048; 83880; 84484; 85027; 93005; 94640; 99281; 99285; J1953; J2405; J2930; J7050; J7644

== ENCOUNTER 2017-08-10 12:20 | Inpatient (IN) | payer OTHER ==
[~2017-08-10] VITALS: Ht 162.6 cm; Wt 55.0 kg
[~2017-08-10 12:20] MED LIST changes: +ALBUTEROL2.5 MG/3 M IH
[2017-08-10 13:44] LABS: MCH 28.9 PG (29.0-34.0); MCHC 31.1 G/DL (30.0-36.0); MCV 93.1 FL (83-99); MEAN PLAT.VOLUME 10.8 uM^3 (9.5-12.4); PLATELET COUNT 161 K/uL (156-360); RBC DIS.WIDTH-CV 16.3 % (11.8-14.6); RBC DIS.WIDTH-SD 56.7 % (39-53); RED BLOOD COUNT 4.94 M/uL (3.80-5.20); WHITE BLOOD COUNT 10.9 K/uL (4.1-10.2)
[2017-08-10 13:54] LABS: CHLORIDE 109 mEq/L (99-109); POTASSIUM 4.5 mEq/L (3.7-5.4); SODIUM 138 mEq/L (136-147)
[2017-08-10 13:55] LABS: GLUCOSE 134 mg/dL (70-99)
[2017-08-10 13:57] LABS: ANION GAP 12 MEQ/L (2-14)
[2017-08-10 13:59] LABS: GFR ESTIMATE (CALCULATED) > 59 mL/min/
[2017-08-10 14:00] LABS: UREA NITROGEN (BUN) 22 mg/dL (9-23)
[2017-08-10 14:19] LABS: ADD MIUA? YES; BILIRUBIN NEGATIVE; BLOOD NEGATIVE; COLOR AMBER ((YELLOW)); GLUCOSE (STRIP) 50; KETONES 5; LEUKOCYTES SMALL; NITRITE NEGATIVE; PROTEIN (STRIP) 100; SPECIFIC GRAVITY 1.025 (1.000-1.030); UROBILINOGEN 0.2 MG/DL (0.2-1.0)
[2017-08-10 14:32] LABS: BACTERIA RARE /HPF; EPITHELIAL CELLS 1+ /HPF; HYALINE CASTS 0-5 /LPF; MUCUS 1+ /LPF; UCUL ADDED? YES; WHITE BLOOD CELLS 15-20 /HPF (0-5)
[2017-08-10 15:33] LABS: TROP-I INTERPRETATION NEGATIVE; TROPONIN-I 0.01 ng/mL (0.0-0.30)
[2017-08-10 16:27] VITALS: BP 117/57
[2017-08-10] MEDS ORDERED: DUONEB 2.5-0.5 M3 ML AEROSOL (18:03)
[2017-08-10] MEDS ORDERED: SEROQUEL200 MG PO (18:05)
[2017-08-10] MEDS ORDERED: VITAMIN D2000 UNI1 PO (18:13)
[2017-08-10] MEDS ORDERED: ASPIR-TRIN325 M1 PO (18:13)
[2017-08-10 20:04] VITALS: BP 130/64
[2017-08-10 21:21] LABS: TROP-I INTERPRETATION NEGATIVE; TROPONIN-I < 0.01 ng/mL (0.0-0.30)
[2017-08-11 00:07] VITALS: BP 112/62
[2017-08-11 03:31] LABS: HEMATOCRIT 37.5 % (36.0-46.0); MCH 28.5 PG (29.0-34.0); MCHC 31.5 G/DL (30.0-36.0); MCV 90.6 FL (83-99); MEAN PLAT.VOLUME 11.3 uM^3 (9.5-12.4); PLATELET COUNT 134 K/uL (156-360); RBC DIS.WIDTH-SD 53.7 % (39-53); RED BLOOD COUNT 4.14 M/uL (3.80-5.20); WHITE BLOOD COUNT 5.3 K/uL (4.1-10.2)
[2017-08-11 03:39] LABS: CHLORIDE 113 mEq/L (99-109); POTASSIUM 4.9 mEq/L (3.7-5.4); SODIUM 139 mEq/L (136-147)
[2017-08-11 03:41] LABS: GLUCOSE 282 mg/dL (70-99)
[2017-08-11 03:42] LABS: ANION GAP 8 MEQ/L (2-14)
[2017-08-11 03:45] LABS: GFR ESTIMATE (CALCULATED) > 59 mL/min/; UREA NITROGEN (BUN) 23 mg/dL (9-23)
[2017-08-11 03:51] LABS: TROP-I INTERPRETATION NEGATIVE; TROPONIN-I < 0.01 ng/mL (0.0-0.30)
[2017-08-11 04:13] VITALS: BP 113/61
[2017-08-11 07:59] VITALS: BP 111/60
[2017-08-11 12:26] VITALS: BP 116/60
[2017-08-11 12:26] LABS: POINT-OF-CARE METER ID UU13113717
[2017-08-11 16:07] VITALS: BP 128/67
[2017-08-11 17:44] LABS: POINT-OF-CARE METER ID UU13113717
[2017-08-11 19:18] VITALS: BP 128/67
[2017-08-11 21:00] LABS: POINT-OF-CARE METER ID UU13113717
[2017-08-12 00:36] VITALS: BP 149/67
[2017-08-12 07:16] LABS: GLUCOSE 271 mg/dL (70-99); UREA NITROGEN (BUN) 25 mg/dL (9-23)
[2017-08-12 07:17] LABS: ANION GAP 5 MEQ/L (2-14); CHLORIDE 114 MEQ/L (99-109); GFR ESTIMATE (CALCULATED) 57 mL/min/; POTASSIUM 4.7 MEQ/L (3.7-5.4); SAMPLE HEMOLYSIS CHECK 0; SAMPLE ICTERIC CHECK 0; SAMPLE LIPEMIA CHECK 0; SODIUM 141 MEQ/L (136-147)
[2017-08-12 07:28] VITALS: BP 144/74
[2017-08-12 07:40] LABS: Estimated Average Glucose 140 mg/dL (70-123); HEMOGLOBIN A1c (GLYCOHEMOGLOB) 6.5 % HGB (Below 5.7)
[2017-08-12 08:01] LABS: POINT-OF-CARE METER ID UU13113717
[2017-08-12] MEDS ORDERED: ADVAIR HFA120 INHALA IH (09:52)
[2017-08-12] MEDS ORDERED: FLORASTOR250 MG PO (09:53)
[2017-08-12] MEDS ORDERED: CEFTIN500 MG PO (09:54)
[2017-08-12] MEDS ORDERED: SPIRIVA18 MCG IH (09:54)
[2017-08-12] MEDS ORDERED: ZITHROMAX250 MG PO (09:55)
[2017-08-12] MEDS ORDERED: PREDNISONE10 MG PO (09:55)
[2017-08-12] MEDS ORDERED: PROAIR HFA8.5 GM IH (09:56)
[2017-08-12 12:13] LABS: POINT-OF-CARE METER ID UU14174225
== END 2017-08-12 13:36 | disposition home health service (06) | DRG 190 ==
LOC: EME 12:20 → 5SOUTH 14:38 → EDOF 14:38 → ENRESERV 14:41 → 5SOUTH 16:15 → ENPENDDIS 08-12 → 5SOUTH 08-12 13:36
PROVIDERS: Family Medicine; Internal Medicine
DX: J44.1 Chronic obstructive pulmonary disease with (acute) exacerbation (principal); J44.0 Chronic obstructive pulmonary disease with (acute) lower respiratory infection; J18.9 Pneumonia, unspecified organism; N39.0 Urinary tract infection, site not specified; E11.65 Type 2 diabetes mellitus with hyperglycemia; F11.20 Opioid dependence, uncomplicated; I10 Essential (primary) hypertension; E03.9 Hypothyroidism, unspecified; G40.909 Epilepsy, unspecified, not intractable, without status epilepticus; K21.9 Gastro-esophageal reflux disease without esophagitis; E78.5 Hyperlipidemia, unspecified; G89.29 Other chronic pain; R11.2 Nausea with vomiting, unspecified; R19.7 Diarrhea, unspecified; F41.9 Anxiety disorder, unspecified; F32.9 Major depressive disorder, single episode, unspecified; F17.210 Nicotine dependence, cigarettes, uncomplicated; Z85.118 Personal history of other malignant neoplasm of bronchus and lung; Z86.718 Personal history of other venous thrombosis and embolism; Z86.711 Personal history of pulmonary embolism; Z90.13 Acquired absence of bilateral breasts and nipples; Z90.710 Acquired absence of both cervix and uterus
CPT/HCPCS: 71020; 80048; 81003; 82948; 83036; 84484; 85027; 87040; 87070; 87086; 87205; 87502; 94640; 94640 76; 99202; 99281; 99285; J0456; J0696; J1650; J1815; J2405; J2920; J2930; J7030; J7512

== ENCOUNTER 2017-08-25 13:12 | Emergency (ER) | payer OTHER ==
[~2017-08-25] VITALS: Ht 162.6 cm; Wt 54.5 kg
[~2017-08-25 13:12] MED LIST changes: +ADVAIR HFA120 INHALA IH; +FLORASTOR250 MG PO; +LO-DOSE ASPIRIN81 M2 PO; +PROAIR HFA8.5 GM IH; +SEROQUEL200 MG PO; +SPIRIVA18 MCG IH; +VITAMIN D2000 UNI1 PO
[2017-08-25 14:30] LABS: ALBUMIN 3.7 g/dL (3.2-4.8)
[2017-08-25 14:31] LABS: CHLORIDE 103 mEq/L (99-109); SODIUM 135 mEq/L (136-147)
[2017-08-25 14:33] LABS: GLUCOSE 197 mg/dL (70-99); TOTAL PROTEIN 6.2 g/dL (6.4-8.3)
[2017-08-25 14:35] LABS: TOTAL BILIRUBIN 0.4 mg/dL (0.0-1.0)
[2017-08-25 14:36] LABS: ALKALINE PHOSPHATASE 101 IU/L (3-129)
[2017-08-25 14:37] LABS: CREATININE 0.9 mg/dL (0.6-1.3); GFR ESTIMATE (CALCULATED) > 59 mL/min/
[2017-08-25 14:38] LABS: AST (GOT) 20 IU/L (2-34); UREA NITROGEN (BUN) 24 mg/dL (9-23)
[2017-08-25 14:39] LABS: ALT (GPT) 64 IU/L (3-49)
[2017-08-25 14:40] LABS: LIPASE 6 U/L (1.0-51.0)
[2017-08-25 15:02] LABS: BASOPHIL (%) 0.1 % (0-1); EOSINOPHIL (%) 0.1 % (0-5); HEMATOCRIT 37.9 % (36.0-46.0); HEMOGLOBIN 12.2 G/DL (11.9-15.5); IMMATURE GRANULOCYTE (%) 0.6 % (0.0-0.7); LYMPHOCYTE (%) 7.7 % (15-42); LYMPHOCYTE COUNT 0.9 K/uL (1.0-2.8); MCH 28.6 PG (29.0-34.0); MCHC 32.2 G/DL (30.0-36.0); MONOCYTE (%) 2.2 % (3-12); MONOCYTE COUNT 0.3 K/uL (0-0.8); NEUTROPHIL (%) 89.3 % (45-76); RBC DIS.WIDTH-CV 16.9 % (11.8-14.6); RBC DIS.WIDTH-SD 54.1 % (39-53); RED BLOOD COUNT 4.26 M/uL (3.80-5.20); WHITE BLOOD COUNT 11.2 K/uL (4.1-10.2)
[2017-08-25 15:03] LABS: PLATELET COUNT 180 K/uL (156-360)
[2017-08-25 19:01] VITALS: BP 136/75
== END 2017-08-25 19:02 | disposition left against medical advice (07) ==
LOC: EME 13:12
PROVIDERS: Emergency Medicine
DX: K59.00 Constipation, unspecified (principal); R11.10 Vomiting, unspecified; K57.30 Diverticulosis of large intestine without perforation or abscess without bleeding; J44.9 Chronic obstructive pulmonary disease, unspecified; F03.90 Unspecified dementia, unspecified severity, without behavioral disturbance, psychotic disturbance, mood disturbance, and anxiety; Z85.118 Personal history of other malignant neoplasm of bronchus and lung; Z90.2 Acquired absence of lung [part of]; Z90.13 Acquired absence of bilateral breasts and nipples; Z90.49 Acquired absence of other specified parts of digestive tract; Z95.0 Presence of cardiac pacemaker; Z86.711 Personal history of pulmonary embolism; Z86.718 Personal history of other venous thrombosis and embolism; Z79.891 Long term (current) use of opiate analgesic; Z79.82 Long term (current) use of aspirin; Z90.710 Acquired absence of both cervix and uterus; F17.200 Nicotine dependence, unspecified, uncomplicated; Z53.20 Procedure and treatment not carried out because of patient's decision for unspecified reasons
CPT/HCPCS: 74177; 80053; 81003; 83605; 83690; 85025; 85025 GA; 93005; 99281; 99285; J2405; J3010

== ENCOUNTER 2017-10-27 12:11 | Emergency (ER) | payer OTHER ==
[~2017-10-27] VITALS: Ht 162.6 cm; Wt 51.3 kg
[2017-10-27 12:55] LABS: HEMATOCRIT 44.8 % (36.0-46.0); HEMOGLOBIN 14.1 G/DL (11.9-15.5); MCH 28.9 PG (29.0-34.0); MCHC 31.5 G/DL (30.0-36.0); MCV 91.8 FL (83-99); PLATELET COUNT 201 K/uL (156-360); RBC DIS.WIDTH-SD 51.2 % (39-53); RED BLOOD COUNT 4.88 M/uL (3.80-5.20); WHITE BLOOD COUNT 6.6 K/uL (4.1-10.2)
[2017-10-27 13:03] LABS: CHLORIDE 106 mEq/L (99-109); POTASSIUM 4.3 mEq/L (3.7-5.4); SODIUM 141 mEq/L (136-147)
[2017-10-27 13:05] LABS: GLUCOSE 140 mg/dL (70-99)
[2017-10-27 13:09] LABS: GFR ESTIMATE (CALCULATED) 57 mL/min/
[2017-10-27 13:10] LABS: UREA NITROGEN (BUN) 14 mg/dL (9-23)
[2017-10-27] MEDS ORDERED: ZOFRAN4 MG PO (14:08)
[2017-10-27] MEDS ORDERED: AMBIEN10 MG PO (14:08)
[2017-10-27 14:16] LABS: THYROTROPIN (TSH) 0.56 MIU/L (0.4-5.5)
[2017-10-27 14:30] VITALS: BP 128/74
[2017-10-27 14:48] LABS: TROP-I INTERPRETATION NEGATIVE; TROPONIN-I < 0.01 ng/mL (0.0-0.30)
== END 2017-10-27 16:31 | disposition home or self-care (01) ==
LOC: EME 12:11
PROVIDERS: Emergency Medicine Emergency Medical Services
DX: R11.2 Nausea with vomiting, unspecified (principal); G47.00 Insomnia, unspecified; R63.4 Abnormal weight loss; Z85.118 Personal history of other malignant neoplasm of bronchus and lung; F17.200 Nicotine dependence, unspecified, uncomplicated; E11.9 Type 2 diabetes mellitus without complications; J44.9 Chronic obstructive pulmonary disease, unspecified; E78.5 Hyperlipidemia, unspecified; F03.90 Unspecified dementia, unspecified severity, without behavioral disturbance, psychotic disturbance, mood disturbance, and anxiety; K21.9 Gastro-esophageal reflux disease without esophagitis; G40.909 Epilepsy, unspecified, not intractable, without status epilepticus; F32.9 Major depressive disorder, single episode, unspecified; E05.90 Thyrotoxicosis, unspecified without thyrotoxic crisis or storm; F41.9 Anxiety disorder, unspecified; Z86.718 Personal history of other venous thrombosis and embolism; Z90.13 Acquired absence of bilateral breasts and nipples; Z95.0 Presence of cardiac pacemaker; Z79.82 Long term (current) use of aspirin
CPT/HCPCS: 80048; 80177 90; 84443; 84484; 85027; 99281; 99285; J0780

== ENCOUNTER 2017-11-13 01:01 | Inpatient (IN) | payer OTHER ==
[~2017-11-13] VITALS: Ht 162.6 cm; Wt 54.3 kg
[~2017-11-13 01:01] MED LIST changes: +LEVO-T100 MCG PO
[2017-11-13 01:34] LABS: BASOPHIL (%) 0.5 % (0-1); BASOPHIL COUNT 0.1 K/uL (0-0.1); EOSINOPHIL (%) 3.3 % (0-5); EOSINOPHIL COUNT 0.4 K/uL (0-0.3); HEMATOCRIT 46.5 % (36.0-46.0); HEMOGLOBIN 14.3 G/DL (11.9-15.5); IMMATURE GRANULOCYTE (%) 0.2 % (0.0-0.7); LYMPHOCYTE (%) 25.7 % (15-42); LYMPHOCYTE COUNT 2.7 K/uL (1.0-2.8); MCH 28.9 PG (29.0-34.0); MCHC 30.8 G/DL (30.0-36.0); MCV 93.9 FL (83-99); MONOCYTE (%) 4.6 % (3-12); MONOCYTE COUNT 0.5 K/uL (0-0.8); NEUTROPHIL (%) 65.7 % (45-76); PLATELET COUNT 202 K/uL (156-360); RBC DIS.WIDTH-CV 15.7 % (11.8-14.6); RBC DIS.WIDTH-SD 54.3 % (39-53); RED BLOOD COUNT 4.95 M/uL (3.80-5.20); WHITE BLOOD COUNT 10.6 K/uL (4.1-10.2)
[2017-11-13 01:34] LABS: BASE EXCESS -0.8 mEq/L (-3 to +3); BICARBONATE 24.9 mEq/L (22-26); CARBOXY HGB 2.1 % (0-5); METHEMOGLOBIN 1.2 % (0-1.5); PCO2 44 mm Hg (35-45); PO2 378 mm Hg (80-100); pH 7.36 (7.35-7.45)
[2017-11-13 01:35] LABS: COMMENTS - BLOOD GASES C+; DEVICE VENT; FI02 80 %; MODE SPON NIV; SITE RR
[2017-11-13 01:36] LABS: PEEP 6 CM/H20; PRES. SUPPORT 12 CM/H2O; TOTAL RESP RATE 24 resp/min
[2017-11-13 01:45] LABS: CHLORIDE 107 mEq/L (99-109); POTASSIUM 4.2 mEq/L (3.7-5.4); SODIUM 147 mEq/L (136-147)
[2017-11-13 01:47] LABS: GLUCOSE 125 mg/dL (70-99)
[2017-11-13 01:51] LABS: CREATININE 1.1 mg/dL (0.6-1.3); GFR ESTIMATE (CALCULATED) 51 mL/min/
[2017-11-13 01:52] LABS: UREA NITROGEN (BUN) 16 mg/dL (9-23)
[2017-11-13 01:55] LABS: TROP-I INTERPRETATION NEGATIVE
[2017-11-13 09:16] VITALS: BP 103/57
[2017-11-13] MEDS ORDERED: ZYPREXA7.5 MG PO (09:45)
[2017-11-13 11:52] VITALS: BP 103/60
[2017-11-13 17:15] VITALS: BP 110/61
[2017-11-13 19:00] VITALS: BP 115/62
== END 2017-11-13 21:37 | disposition left against medical advice (07) | DRG 190 ==
LOC: EME → EDBD 01:01 → EME 01:01 → EDOF 05:59 → ENRESERV 06:01 → 4EAST 08:16
PROVIDERS: Emergency Medicine
DX: J43.9 Emphysema, unspecified (principal); J96.21 Acute and chronic respiratory failure with hypoxia; G40.909 Epilepsy, unspecified, not intractable, without status epilepticus; J20.9 Acute bronchitis, unspecified; E03.9 Hypothyroidism, unspecified; F17.200 Nicotine dependence, unspecified, uncomplicated; E78.5 Hyperlipidemia, unspecified; R07.9 Chest pain, unspecified; R51 Headache; R09.02 Hypoxemia; Z90.2 Acquired absence of lung [part of]; Z95.0 Presence of cardiac pacemaker; Z80.1 Family history of malignant neoplasm of trachea, bronchus and lung; Z85.118 Personal history of other malignant neoplasm of bronchus and lung; Z86.718 Personal history of other venous thrombosis and embolism; Z86.711 Personal history of pulmonary embolism; Z90.710 Acquired absence of both cervix and uterus; Z90.13 Acquired absence of bilateral breasts and nipples; J44.0 Chronic obstructive pulmonary disease with (acute) lower respiratory infection
CPT/HCPCS: 36600; 71045; 80048; 82803; 83605; 83880; 84484; 85025; 85610; 85730; 87040; 93005; 94002; 94640; 94640 76; 94644; 94760; 94799; 99202; 99281; 99285; J0696; J1100; J1200; J1644; J2765; J2930; J3475; J7030; J7644

== ENCOUNTER 2018-01-31 21:59 | Emergency (ER) | payer OTHER ==
[~2018-01-31] VITALS: Ht 162.6 cm; Wt 50.0 kg
[~2018-01-31 21:59] MED LIST changes: +ZYPREXA7.5 MG PO
[2018-01-31 22:41] LABS: HEMATOCRIT 43.3 % (36.0-46.0); HEMOGLOBIN 14.1 G/DL (11.9-15.5); MCH 29.4 PG (29.0-34.0); MCHC 32.6 G/DL (30.0-36.0); MCV 90.4 FL (83-99); PLATELET COUNT 154 K/uL (156-360); RBC DIS.WIDTH-CV 15.8 % (11.8-14.6); RBC DIS.WIDTH-SD 52.7 % (39-53); RED BLOOD COUNT 4.79 M/uL (3.80-5.20); WHITE BLOOD COUNT 7.9 K/uL (4.1-10.2)
[2018-01-31 22:50] LABS: ALBUMIN 3.7 g/dL (3.2-4.8)
[2018-01-31 22:51] LABS: CHLORIDE 104 mEq/L (99-109); MAGNESIUM 1.8 mg/dL (1.3-2.7); POTASSIUM 4.2 mEq/L (3.7-5.4); SODIUM 138 mEq/L (136-147)
[2018-01-31 22:53] LABS: GLUCOSE 137 mg/dL (70-99); TOTAL PROTEIN 5.7 g/dL (6.4-8.3)
[2018-01-31 22:55] LABS: TOTAL BILIRUBIN 0.7 mg/dL (0.0-1.0)
[2018-01-31 22:56] LABS: ALKALINE PHOSPHATASE 88 IU/L (3-129)
[2018-01-31 22:57] LABS: CREATININE 0.8 mg/dL (0.6-1.3); GFR ESTIMATE (CALCULATED) > 59 mL/min/
[2018-01-31 22:58] LABS: AST (GOT) 10 IU/L (2-34); UREA NITROGEN (BUN) 17 mg/dL (9-23)
[2018-01-31 23:00] LABS: ALT (GPT) 7 IU/L (3-49); LIPASE 5 U/L (1.0-51.0)
[2018-01-31 23:03] LABS: TROP-I INTERPRETATION NEGATIVE; TROPONIN-I < 0.01 ng/mL (0.0-0.30)
[2018-02-01] MEDS ORDERED: LEVAQUIN750 MG PO (02:25)
[2018-02-01 03:00] VITALS: BP 108/72
== END 2018-02-01 03:02 | disposition left against medical advice (07) ==
LOC: EME → EDBD 21:59 → EME 02-01 03:02
PROVIDERS: Emergency Medicine
DX: J44.9 Chronic obstructive pulmonary disease, unspecified (principal); R91.8 Other nonspecific abnormal finding of lung field; E11.9 Type 2 diabetes mellitus without complications; K21.9 Gastro-esophageal reflux disease without esophagitis; E78.5 Hyperlipidemia, unspecified; I25.10 Atherosclerotic heart disease of native coronary artery without angina pectoris; F41.9 Anxiety disorder, unspecified; F32.9 Major depressive disorder, single episode, unspecified; F17.200 Nicotine dependence, unspecified, uncomplicated; Z79.82 Long term (current) use of aspirin; Z79.891 Long term (current) use of opiate analgesic; Z99.81 Dependence on supplemental oxygen; Z95.0 Presence of cardiac pacemaker; Z98.890 Other specified postprocedural states; Z85.118 Personal history of other malignant neoplasm of bronchus and lung; Z90.49 Acquired absence of other specified parts of digestive tract; Z90.13 Acquired absence of bilateral breasts and nipples; Z88.8 Allergy status to other drugs, medicaments and biological substances
CPT/HCPCS: 71046; 71275; 80053; 82803; 83690; 83735; 83880; 84484; 85027; 85379; 93005; 94640; 99281; 99284; J2405; J7030

== ENCOUNTER 2018-04-29 18:05 | Emergency (ER) | payer OTHER ==
[~2018-04-29] VITALS: Ht 165.1 cm; Wt 36.0 kg
[~2018-04-29 18:05] MED LIST changes: +LEVAQUIN750 MG PO
[2018-04-29 18:53] LABS: BASOPHIL (%) 0.5 % (0-1); EOSINOPHIL COUNT 0.3 K/uL (0-0.3); HEMATOCRIT 44.5 % (36.0-46.0); HEMOGLOBIN 14.6 G/DL (11.9-15.5); IMMATURE GRANULOCYTE (%) 0.2 % (0.0-0.7); LYMPHOCYTE (%) 30.3 % (15-42); LYMPHOCYTE COUNT 1.8 K/uL (1.0-2.8); MCH 29.7 PG (29.0-34.0); MCHC 32.8 G/DL (30.0-36.0); MCV 90.4 FL (83-99); MONOCYTE (%) 5.9 % (3-12); MONOCYTE COUNT 0.3 K/uL (0-0.8); NEUTROPHIL (%) 58.1 % (45-76); NEUTROPHIL COUNT 3.4 K/uL (1.8-6.4); PLATELET COUNT 192 K/uL (156-360); RBC DIS.WIDTH-CV 16.4 % (11.8-14.6); RBC DIS.WIDTH-SD 54.2 % (39-53); RED BLOOD COUNT 4.92 M/uL (3.80-5.20); WHITE BLOOD COUNT 5.8 K/uL (4.1-10.2)
[2018-04-29 19:08] LABS: ALBUMIN 3.8 g/dL (3.2-4.8); CHLORIDE 102 mEq/L (99-109); POTASSIUM 4.1 mEq/L (3.7-5.4); SODIUM 140 mEq/L (136-147)
[2018-04-29 19:09] LABS: INTER. NORMALIZED RATIO 0.9
[2018-04-29 19:10] LABS: GLUCOSE 116 mg/dL (70-99); TOTAL PROTEIN 6.1 g/dL (6.4-8.3)
[2018-04-29 19:12] LABS: TOTAL BILIRUBIN 0.4 mg/dL (0.0-1.0)
[2018-04-29 19:13] LABS: PTT 28.1 SEC (25-37)
[2018-04-29 19:14] LABS: ALKALINE PHOSPHATASE 82 IU/L (3-129); CREATININE 1.1 mg/dL (0.6-1.3); GFR ESTIMATE (CALCULATED) 51 mL/min/
[2018-04-29 19:15] LABS: AST (GOT) 8 IU/L (2-34); DIRECT BILIRUBIN 0.1 mg/dL (0.0-0.3); UREA NITROGEN (BUN) 18 mg/dL (9-23)
[2018-04-29 19:17] LABS: ALT (GPT) 5 IU/L (3-49); LIPASE 8 U/L (1.0-51.0)
[2018-04-29 22:15] LABS: APPEARANCE CLEAR ((CLEAR)); BILIRUBIN NEGATIVE; BLOOD NEGATIVE; COLOR YELLOW ((YELLOW)); GLUCOSE (STRIP) NEGATIVE; KETONES NEGATIVE; LEUKOCYTES NEGATIVE; NITRITE NEGATIVE; PROTEIN (STRIP) NEGATIVE; SPECIFIC GRAVITY 1.024 (1.000-1.030); UCUL ADDED? NO; UROBILINOGEN 0.2 MG/DL (0.2-1.0)
[2018-04-29 23:18] VITALS: BP 130/88
== END 2018-04-29 23:14 | disposition short-term general hospital (02) ==
LOC: EME → EDBD 18:05 → EME 18:05
PROVIDERS: Emergency Medicine
DX: K55.9 Vascular disorder of intestine, unspecified (principal); J43.9 Emphysema, unspecified; Z99.81 Dependence on supplemental oxygen; Z72.0 Tobacco use; E11.9 Type 2 diabetes mellitus without complications; E78.5 Hyperlipidemia, unspecified; F03.90 Unspecified dementia, unspecified severity, without behavioral disturbance, psychotic disturbance, mood disturbance, and anxiety; F32.9 Major depressive disorder, single episode, unspecified; F41.9 Anxiety disorder, unspecified; I10 Essential (primary) hypertension; J45.909 Unspecified asthma, uncomplicated; K21.9 Gastro-esophageal reflux disease without esophagitis; Z90.13 Acquired absence of bilateral breasts and nipples; G40.909 Epilepsy, unspecified, not intractable, without status epilepticus; Z85.118 Personal history of other malignant neoplasm of bronchus and lung; E05.90 Thyrotoxicosis, unspecified without thyrotoxic crisis or storm; Z95.0 Presence of cardiac pacemaker; Z86.711 Personal history of pulmonary embolism; Z86.718 Personal history of other venous thrombosis and embolism; Z88.8 Allergy status to other drugs, medicaments and biological substances; I73.9 Peripheral vascular disease, unspecified; Z79.82 Long term (current) use of aspirin
CPT/HCPCS: 74177; 80048; 80076; 81003; 83605; 83690; 85025; 85610; 85730; 86850; 86900; 86901; 94640; 99281; 99285; J7040